=== PATIENT | female | born 1925 | race Caucasian/White ===

== ENCOUNTER 2016-09-04 10:34 | Emergency (ER) | payer OTHER ==
[2016-09-04 10:41] VITALS: BP 142/91; PULSE 85; TEMP 97.5; BMI 23.3
--- NOTE | 2016-09-04 10:49 | PDOC ---
History of Present Illness - General Chief Complaint: Pain, Acute Stated Complaint: LEFT FOOT/ ANKLE PAIN Time Seen by Provider: 09/04/16 10:41 History Source: Patient Exam Limitations: No Limitations - History of Present Illness Initial Comments: 09/04/16 10:44 The patient is an 89-year-old female, immunocompetent, who presents to the emergency department with approximately 12 hours of a rash on her right lateral foot. It began in the region of her ankle, and has now spread toward the mid foot and also up toward the calf. It is mildly tender. She denies fever. She denies swelling. She denies chest pain, back pain, dyspnea. She states that she has neuropathy, and often scratches her ankle while walking past objects. However, she adamantly denies recent trauma. There is no subjective pain when she palpates the area herself. There is no pain on ambulation. There is no pain on range of motion of the ankle and foot. Past History - Past Medical History Allergies/Adverse Reactions: Allergies Allergy/AdvReac Type Severity Reaction Status Date / Time celecoxib [From Celebrex] AdvReac Nausea Verified 09/04/16 10:35 codeine [Codeine] AdvReac Nausea Verified 09/04/16 10:35 hydromorphone HCl AdvReac Nausea Verified 09/04/16 10:35 [From Dilaudid] morphine AdvReac Nausea Verified 09/04/16 10:35 Home Medications: Ambulatory Orders Amlodipine Besylate [Norvasc -] 10 mg PO DAILY 10/03/12 Olmesartan Medoxomil [Benicar -] 20 mg PO DAILY 10/03/12 Metoprolol Succinate [Toprol XL -] 50 mg PO DAILY 02/15/13 Levothyroxine [Synthroid -] 25 mcg PO DAILY 02/06/16 Mirtazapine [Remeron -] 7.5 mg PO HS PRN 02/06/16 Bromfenac Sodium [Prolensa] 1 drop OS DAILY 04/01/16 Pantoprazole Sodium [Protonix] 40 mg PO DAILY 04/01/16 Atorvastatin Ca [Lipitor] 10 mg PO HS 04/13/16 Cephalexin Monohydrate [Keflex] 500 mg PO Q8H #21 capsule 09/04/16 Anemia: No Asthma: No Cancer: No Cardiac Disorders: No CVA: No COPD: No CHF: No Dementia: No Diabetes: No GI Disorders: Yes (GERD, Diverticulitis) Disorders: No HTN: Yes Hypercholesterolemia: Yes Liver Disease: No Seizures: No Thyroid Disease: (Hypothyroidism) - Surgical History Abdominal Surgery: Yes Appendectomy: Yes Cardiac Surgery: No Cholecystectomy: Yes Lung Surgery: No Neurologic Surgery: No Orthopedic Surgery: No - Psycho/Social/Smoking Cessation Hx Anxiety: No Suicidal Ideation: No Smoking Status: No Smoking History: Former smoker Have you smoked in the past 12 months: No Number of Cigarettes Smoked Daily: 10 If you are a former smoker, when did you quit?: 1964 Information on smoking cessation initiated: No Hx Alcohol Use: No Drug/Substance Use Hx: No Substance Use Type: None Hx Substance Use Treatment: No Review of Systems - Review of Systems Comments:: 09/04/16 10:45 CONSTITUTIONAL: Absent: fever, chills, fatigue EYES: Absent: visual changes ENT: Absent: ear pain, sore throat CARDIOVASCULAR: Absent: chest pain, palpitations, loss of consciousness RESPIRATORY: Absent: cough, SOB GI: Absent: abdominal pain, nausea, vomiting, constipation, diarrhea GENITOURINARY: Absent: dysuria, frequency, hematuria MUSKULOSKELETAL: Absent: back pain, arthralgia, myalgia SKIN: Present: see HPI NEURO: Absent: headache, dizziness *Physical Exam - Vital Signs Last Vital Signs Temp Pulse Resp BP Pulse Ox 97.5 F L 85 16 142/91 96 09/04/16 10:35 09/04/16 10:35 09/04/16 10:35 09/04/16 10:35 09/04/16 10:35 - Physical Exam Comments: 09/04/16 10:46 GENERAL: Well-appearing, well-nourished. No apparent distress. HEENT: Normocephalic, atraumatic. PERRL, EOM intact. CARDIOVASCULAR: Normal S1, S2. Regular rate and rhythm. PULMONARY: Clear to auscultation bilaterally. ABDOMEN: Soft, non-distended, non-tender. EXTREMITIES: No gross deformities. There is no bony tenderness of any of the ankle or foot bones. There is full range of motion without pain at the ankle and foot. SKIN: There is a slight erythematous rash in the area of the lateral ankle, that extends approximately 2 cm distal and approximately 2 cm proximal. There are no erythematous streaks extending beyond this area. It is slightly tender to the touch. NEUROLOGICAL: No focal neurological deficits. Medical Decision Making - Medical Decision Making 09/04/16 10:47 The patient is very well-appearing and in no acute distress Her clinical presentation is quite consistent with early/mild cellulitis There is no evidence of sepsis or deep tissue infection It is nonpurulent cellulitis Will treat with Keflex I outlined the area with a highlighter, and she understands that she needs to return to the emergency department if her symptoms do not improve within 24 hours or if they worsen. Clinical impression: Early/mild cellulitis I discussed the physical exam findings, ancillary test results and final diagnoses with the patient. I answered all of the patient's questions. The patient was satisfied with the care received and felt comfortable with the discharge plan and treatment plan. The patient will call their primary care physician within 24 hours to arrange follow-up and will return to the Emergency Department with any new, persistent or worsening symptoms. *DC/Admit/Observation/Transfer Diagnosis at time of Disposition: Cellulitis - Discharge Dispostion Disposition: HOME Condition at time of disposition: Stable - Prescriptions Prescriptions: Cephalexin Monohydrate [Keflex] 500 mg PO Q8H #21 capsule - Referrals Referrals: Germán Willingham MD [Primary Care Provider] - - Patient Instructions Printed Discharge Instructions: DI for Cellulitis -- Adult Additional Instructions: Return to the emergency department immediately with ANY new, persistent or worsening symptoms. You MUST call and follow up with your doctor Tuesday at the latest. Please make sure your doctor reviews the results of your emergency department evaluation.
== END 2016-09-04 11:01 | disposition home or self-care (01) ==
LOC: FER 10:34
DX: L03.90 Cellulitis, unspecified (principal); K21.9 Gastro-esophageal reflux disease without esophagitis; E03.9 Hypothyroidism, unspecified; I10 Essential (primary) hypertension; Z87.891 Personal history of nicotine dependence; E78.00 Pure hypercholesterolemia, unspecified
CPT/HCPCS: 99282-25

== ENCOUNTER 2016-12-31 11:25 | Inpatient (IN) | payer OTHER ==
--- NOTE | 2016-12-31 12:15 | PDOC ---
History of Present Illness - General Chief Complaint: Injury Stated Complaint: LEFT LEG PAIN FALL Time Seen by Provider: 12/31/16 11:43 History Source: Patient, Family Exam Limitations: No Limitations - History of Present Illness Initial Comments: 12/31/16 13:23 89-year-old female with history of hypertension presents with mechanical fall. Patient denies injuries other than her left knee which she landed on. She reports issues and sick about pain and unable to ambulate. Denies numbness or weakness. States that the pain is worse over her left anterior knee and has developed extensive ecchymosis. Given the pain and inability to and ambulate, the patient had came to the hospital. Past History - Past Medical History Allergies/Adverse Reactions: Allergies Allergy/AdvReac Type Severity Reaction Status Date / Time celecoxib [From Celebrex] AdvReac Nausea Verified 12/31/16 11:56 codeine [Codeine] AdvReac Nausea Verified 12/31/16 11:56 hydromorphone HCl AdvReac Nausea Verified 12/31/16 11:56 [From Dilaudid] morphine AdvReac Nausea Verified 12/31/16 11:56 Home Medications: Ambulatory Orders Amlodipine Besylate [Norvasc -] 10 mg PO DAILY 10/03/12 Olmesartan Medoxomil [Benicar -] 20 mg PO DAILY 10/03/12 Metoprolol Succinate [Toprol XL -] 50 mg PO DAILY 02/15/13 Levothyroxine [Synthroid -] 25 mcg PO DAILY 02/06/16 Mirtazapine [Remeron -] 7.5 mg PO HS PRN 02/06/16 Pantoprazole Sodium [Protonix] 40 mg PO DAILY 04/01/16 Atorvastatin Ca [Lipitor] 10 mg PO HS 04/13/16 Anemia: No Asthma: No Cancer: No Cardiac Disorders: No CVA: No COPD: No CHF: No Dementia: No Diabetes: No GI Disorders: Yes (GERD, Diverticulitis) Disorders: No HTN: Yes Hypercholesterolemia: Yes Liver Disease: No Seizures: No Thyroid Disease: (Hypothyroidism) - Surgical History Abdominal Surgery: Yes Appendectomy: Yes Cardiac Surgery: No Cholecystectomy: Yes Lung Surgery: No Neurologic Surgery: No Orthopedic Surgery: No - Psycho/Social/Smoking Cessation Hx Anxiety: No Suicidal Ideation: No Smoking Status: No Smoking History: Former smoker Have you smoked in the past 12 months: No Number of Cigarettes Smoked Daily: 10 If you are a former smoker, when did you quit?: 1965 Hx Alcohol Use: No Drug/Substance Use Hx: No Substance Use Type: None Hx Substance Use Treatment: No Review of Systems - Review of Systems Able to Perform ROS?: Yes Comments:: 12/31/16 13:24 GENERAL/CONSTITUTIONAL: No fever, weakness. HEAD, EYES, EARS, NOSE AND THROAT: No change in vision. No ear pain or discharge. No sore throat. CARDIOVASCULAR: No chest pain or shortness of breath. RESPIRATORY: No cough, wheezing, or hemoptysis. GASTROINTESTINAL: No abdominal pain, nausea, vomiting, diarrhea, or decreased PO intolerance. GENITOURINARY: No dysuria, frequency, or change in urination. MUSCULOSKELETAL: +Left knee pain SKIN: No rash NEUROLOGIC: No headache, vertigo, loss of consciousness, or change in strength/ sensation. ENDOCRINE: No increased thirst. No abnormal weight change. HEMATOLOGIC/LYMPHATIC: No anemia, easy bleeding, or history of blood clots. ALLERGIC/IMMUNOLOGIC: No hives or skin allergy. *Physical Exam - Physical Exam Comments: 12/31/16 13:25 GENERAL: Awake, alert, and fully oriented, in no acute distress. HEAD: No signs of trauma EYES: PERRLA, EOMI, sclera anicteric, conjunctiva clear ENT: Auricles normal inspection, hearing grossly normal, nares patent, oropharynx clear without exudates. NECK: Normal ROM, supple, no lymphadenopathy, JVD, or masses LUNGS: Breath sounds equal, clear to auscultation bilaterally. No wheezes, and no crackles HEART: Regular rate and rhythm, normal S1 and S2, no murmurs, rubs or gallops ABDOMEN: Soft, nontender, normoactive bowel sounds. No guarding, no rebound. No masses EXTREMITIES: LLE: 2+ DP pulse. Sensation intact throughout. ~4x4 cm ecchymosis left anterior knee tender to palpation. Unable to bear weight. Negative anterior and posterior drawer test. Negative varus and valgus. NEUROLOGICAL: Cranial nerves II through XII grossly intact. Normal speech, normal gait SKIN: Warm, Dry, normal turgor, no rashes or lesions noted. Heart Score/ECG Review #1 ECG reviewed & interpreted by me at: 15:00 12/31/16 15:13 NSR 82, Q wave III, avF, no std/juan ramon, normal axis, normal intervals, QTC 429 msec ED Treatment Course - LABORATORY CBC & Chemistry Diagram: 12/31/16 13:39 12/31/16 13:39 - RADIOLOGY Radiology Studies Ordered: Category Date Time Status FEMUR-LEFT [RAD] Stat Radiology 12/31/16 11:51 Ordered KNEE 3 POS-LEFT [RAD] Stat Radiology 12/31/16 11:51 Ordered Medical Decision Making - Medical Decision Making 12/31/16 13:26 Vital Signs Temp Pulse Resp BP Pulse Ox 98.1 F 68 19 157/72 97 12/31/16 11:36 12/31/16 11:36 12/31/16 11:36 12/31/16 11:36 12/31/16 11:36 Left knee xray demonstrates no acute fractures. However, pt unable to ambulate. Likely knee sprain. Will need to admit for observation for PT/OT evaluation. 12/31/16 15:12 CBC, BMP 12/31/16 13:39 12/31/16 13:39 CMP Sodium 140 mmol/L (136-145) 12/31/16 13:39 Potassium 3.5 mmol/L (3.5-5.1) 12/31/16 13:39 Chloride 106 mmol/L (98-107) 12/31/16 13:39 Carbon Dioxide 25 mmol/L (22-28) 12/31/16 13:39 Anion Gap 9 (8-16) 12/31/16 13:39 BUN 15 mg/dl (7-18) 12/31/16 13:39 Creatinine 0.7 mg/dl (0.6-1.3) D 12/31/16 13:39 Creat Clearance w eGFR > 60 (>60) 12/31/16 13:39 Random Glucose 102 mg/dl (74-106) 12/31/16 13:39 Calcium 9.3 mg/dl (8.4-10.2) 12/31/16 13:39 Total Bilirubin 1.2 mg/dl (0.2-1.0) H D 12/31/16 13:39 AST 21 U/L (10-42) 12/31/16 13:39 ALT 16 U/L (10-40) 12/31/16 13:39 Alkaline Phosphatase 71 U/L (32-92) 12/31/16 13:39 Total Protein 7.4 g/dl (6.4-8.3) 12/31/16 13:39 Albumin 4.3 g/dl (3.5-5.0) 12/31/16 13:[address] Arevalo. [address]. Arevalo will see patient as science consultant. Recomends CT. CT ordered. Again, given inability to ambulate, [facility] under med/surg obs Case discussed in detail with admitting physician including history, physical exam and ancillary studies. Admitting physician has assumed care for the patient, will follow all pending diagnostics and will complete the evaluation and treatment. 12/31/16 15:47 CAT scan demonstrates acute left intertrochanteric fracture and acute fracture to the greater trochanter with no dislocation of the femoral head with the acetabular fossa. Will switch to full admission. DR. Sr in ED evaluating patient. *DC/Admit/Observation/Transfer Diagnosis at time of Disposition: Pain of left hip Left knee pain Qualifiers: Chronicity: acute Qualified Code(s): M25.562 - Pain in left knee - Discharge Dispostion Condition at time of disposition: Stable Admit: Yes
[2016-12-31] MEDS ORDERED: KETOROLAC TROMETHAMINE 15 MG/ML VIAL IVPUSH ONE (13:20)
[2016-12-31] MEDS ORDERED: KETOROLAC TROMETHAMINE 30 MG/1 ML VIAL ONE (13:20)
[2016-12-31 13:41] LABS: BASOPHIL 3.4 % (0-2.0); EOSINOPHIL 1.1 % (0-4.5); MCH 29.6 pg (25.7-33.7); MCHC 33.9 g/dl (32.0-36.0); MEAN CELL VOLUME 87.4 fl (80-96); MEAN PLT VOLUME 8.4 fl (7.5-11.1); NEUTROPHILS 69.2 % (42.8-82.8); PLATELET COUNT 202 K/MM3 (134-434); WHITE BLOOD COUNT 9.4 K/mm3 (4.0-10.8)
[2016-12-31 14:00] LABS: ALBUMIN 4.3 g/dl (3.5-5.0); ALK PHOS 71 U/L (32-92); ANION GAP 9 (8-16); BILIRUBIN,TOTAL 1.2 mg/dl (0.2-1.0); CALCIUM 9.3 mg/dl (8.4-10.2); CO2 25 mmol/L (22-28); CREATININE 0.7 mg/dl (0.6-1.3); GLUCOSE,RANDOM 102 mg/dl (74-106); SGOT/AST 21 U/L (10-42); SGPT/ALT 16 U/L (10-40); TOT PROT 7.4 g/dl (6.4-8.3)
[2016-12-31 14:01] LABS: PH,URINE 7.5 (4.5-8); URINE APPEARANCE Clear; URINE BILIRUBIN Negative (NEGATIVE); URINE GLUCOSE (UA) Negative (NEGATIVE); URINE KETONE Trace (NEGATIVE); URINE LEUK ESTERASE Negative (NEGATIVE); URINE NITRITE Negative (NEGATIVE); URINE PROTEIN Negative (NEGATIVE); URINE UROBILINOGEN 0.2 (0.2-1.0)
[2016-12-31] MEDS ORDERED: KETOROLAC TROMETHAMINE 30 MG/1 ML VIAL IVPUSH PRN ×2 (15:07→21:49)
[2016-12-31] MEDS ORDERED: SODIUM CHLORIDE 1,000 ML IV SCH (15:15)
[2016-12-31 15:50] LABS: URINE BLOOD Trace-intact (NEGATIVE); URINE COLOR YELLOW
--- NOTE | 2016-12-31 16:36 | PN ---
Progress Note (short form) - Note Progress Note: Pt seen and examined in the ER. She is an 89 year old female 1 day s/p fall. She pain in the left knee, distal femur, anterior tibia in that order of severity, and vague, less severe, nonspecific pain in the left pelvic area, more laterally. PE LLE is grossly NVI No deformity, no malrotation No pain in the left pelvis and hip area with significant pressure. No pain in the left hip with log rolling. No groin pain. + pain the left knee with axial load, + min pain in the left pelvis. Flexion of the hip possible but decreased, ROM of the knee is possible but limited because of pain. Most of her complaints of pain, and tenderness are over the left knee, very distal femur, and proximal tibia. Xrays AP of the pelvis shows no acute otis pathology Ct Scan of the pelvis shows an acute, comminuted left greater trochanter fracture. The CT report stated there was a nondisplaced left IT fracture. I reviewed the CT scan and was not at all sure that I agreed with that assessment, So I spoke to another radiologist, Dr Guevara, who agrees with me that there is no obvious evidence of an acute Left IT fracture. Imp Clinically she is not presenting like she has an acute IT fracture. She has some lateral left femur fracture pain,over the greater trochanter fracture. Combined with a non specific CTscan I am recommending non operative treatment at this time. Rec P.T., PWB LLE. We will see how it goes over the next 24-48 hours. If she does well we will continue with non operative treatment. If she has increased pain and great difficulty with PWB P.T. then I would recommend an MRI of the left hip.
[2016-12-31 18:24] VITALS: BMI 23.1
[2016-12-31 20:58] LABS: URINE BACTERIA FEW /hpf (NEGATIVE); URINE WBC 0-2 (3-5)
--- NOTE | 2016-12-31 21:42 | HP ---
CHIEF COMPLAINT: knee pain PCP: Maulik HISTORY OF PRESENT ILLNESS: This is an 89 year old female with a past medical history of HTN, HLD, GERD, hypothyroidism who had a mechanical fall yesterday. She was able to get back up and walk to her apartment from the hallway, but had difficulty ambulating today. Pt reports pain to left knee above and below. Denies hip pain. ER course was notable for: (1) L greater trochanteric fx Recent Travel: pt denies PAST MEDICAL HISTORY: HTN HLD GERD hypothyroidism anemia, GI bleed many years ago PAST SURGICAL HISTORY: appendectomy cholecystectomy Social History: Smoking: quit 1960, smoked 1.5 PPW Alcohol: pt denies Drugs: pt denies Family History: mother age 84, [place], CHF, h/o OA father 75, [place], h/o BrCA son alive and well Allergies celecoxib [From Celebrex] Adverse Reaction (Verified 12/31/16 11:56) Nausea codeine [Codeine] Adverse Reaction (Verified 12/31/16 11:56) Nausea hydromorphone HCl [From Dilaudid] Adverse Reaction (Verified 12/31/16 11:56) Nausea morphine Adverse Reaction (Verified 12/31/16 11:56) Nausea HOME MEDICATIONS: 3 Medication Instructions Recorded Amlodipine Besylate [Norvasc -] 10 mg PO DAILY 10/03/12 Olmesartan Medoxomil [Benicar -] 20 mg PO DAILY 10/03/12 Metoprolol Succinate [Toprol XL -] 50 mg PO DAILY 02/15/13 Levothyroxine [Synthroid -] 25 mcg PO DAILY 02/06/16 Mirtazapine [Remeron -] 7.5 mg PO HS PRN 02/06/16 Pantoprazole Sodium [Protonix] 40 mg PO DAILY 04/01/16 Atorvastatin Ca [Lipitor] 10 mg PO HS 04/13/16 REVIEW OF SYSTEMS CONSTITUTIONAL: Absent: fever, chills, diaphoresis, generalized weakness, malaise, loss of appetite, weight change HEENT: Absent: rhinorrhea, nasal congestion, throat pain, throat swelling, difficulty swallowing, mouth swelling, ear pain, eye pain, visual changes CARDIOVASCULAR: Absent: chest pain, syncope, palpitations, irregular heart rate, lightheadedness , peripheral edema RESPIRATORY: Absent: cough, shortness of breath, dyspnea with exertion, orthopnea, wheezing, stridor, hemoptysis GASTROINTESTINAL: Absent: abdominal pain, abdominal distension, nausea, vomiting, diarrhea, constipation, melena, hematochezia GENITOURINARY: Absent: dysuria, frequency, urgency, hesitancy, hematuria, flank pain, genital pain MUSCULOSKELETAL: Present: left knee Absent: myalgia, arthralgia, joint swelling, back pain, neck pain SKIN: Absent: rash, itching, pallor HEMATOLOGIC/IMMUNOLOGIC: Absent: easy bleeding, easy bruising, lymphadenopathy, frequent infections ENDOCRINE: Absent: unexplained weight gain, unexplained weight loss, heat intolerance, cold intolerance NEUROLOGIC: Absent: headache, focal weakness or paresthesias, dizziness, unsteady gait, seizure, mental status changes, bladder or bowel incontinence PSYCHIATRIC: Absent: anxiety, depression, suicidal or homicidal ideation, hallucinations. PHYSICAL EXAMINATION Vital Signs - 24 hr 3 12/31/16 12/31/16 12/31/16 12/31/16 11:36 17:21 18:28 22:30 Temperature 98.1 F 97.6 F 98.1 F Pulse Rate 68 82 78 Respiratory 19 19 18 18 Rate Blood Pressure 157/72 140/73 139/65 O2 Sat by Pulse 97 97 94 L 94 L Oximetry (%) GENERAL: Awake, alert, and fully oriented, in no acute distress. HEAD: Normal with no signs of trauma. EYES: Pupils equal, round and reactive to light, extraocular movements intact, sclera anicteric, conjunctiva clear. No lid lag. EARS, NOSE, THROAT: Ears normal, nares patent, oropharynx clear without exudates. Moist mucous membranes. NECK: Normal range of motion, supple without lymphadenopathy, JVD, or masses. LUNGS: Breath sounds equal, clear to auscultation bilaterally. No wheezes, and no crackles. No accessory muscle use. HEART: Regular rate and rhythm, normal S1 and S2 without murmur, rub or gallop. ABDOMEN: Soft, nontender, not distended, normoactive bowel sounds, no guarding, no rebound, no masses. No hepatomegaly or splenomegaly. MUSCULOSKELETAL: Normal range of motion at all joints. No bony deformities or tenderness. No CVA tenderness. UPPER EXTREMITIES: 2+ pulses, warm, well-perfused. No cyanosis. No clubbing. No peripheral edema. LOWER EXTREMITIES: 2+ pulses, warm, well-perfused. No calf tenderness. No peripheral edema right leg, trace dependent edema L lateral foot, none in ankle. + ecchymosis and soft tissue swelling left knee, + pain on ROM L knee. + pain on ROM L hip, no pain on palpation NEUROLOGICAL: Cranial nerves II-XII intact. Normal speech. Normal gait. PSYCHIATRIC: Cooperative. Good eye contact. Appropriate mood and affect. SKIN: Warm, dry, normal turgor, no rashes or lesions noted, normal capillary refill. Laboratory Results - last 24 hr 3 12/31/16 12/31/16 12/31/16 13:25 13:39 13:39 WBC 9.4 RBC 4.71 Hgb 13.9 Hct 41.2 MCV 87.4 MCH 29.6 MCHC 33.9 RDW 13.0 Plt Count 202 D MPV 8.4 Neutrophils % 69.2 Lymphocytes % 17.4 D Monocytes % 8.9 Eosinophils % 1.1 D Basophils % 3.4 H D Sodium 140 Potassium 3.5 Chloride 106 Carbon Dioxide 25 Anion Gap 9 BUN 15 Creatinine 0.7 D Creat Clearance w eGFR > 60 Random Glucose 102 Calcium 9.3 Total Bilirubin 1.2 H D AST 21 ALT 16 Alkaline Phosphatase 71 Total Protein 7.4 Albumin 4.3 Urine Color Yellow Urine Appearance Clear Urine pH 7.5 D Ur Specific [place] 1.015 Urine Protein Negative Urine Glucose (UA) Negative Urine Ketones Trace Urine Blood Trace-intact H Urine Nitrite Negative Urine Bilirubin Negative Urine Urobilinogen 0.2 Ur Leukocyte Esterase Negative Urine RBC 2-3 Urine WBC 0-2 Urine Bacteria Few Radiology Reports: CT pelvis without contrast CT lower extremity without contrast Comparison studies: April 01, 2016 CT pelvis without contrast CLINICAL HISTORY: Unable to ambulate after trauma and fall for evaluation of left hip, thigh and knee Axial imaging completed with coronal and sagittal reformations, intravenous and oral contrast are not administered. Bone windows reviewed demonstrating no fracture in the region of iliac bone, sacrum or sacroiliac joints Normal region of the anterior and posterior columns of the acetabulum including superior and inferior pubic ramus with no acute fracture or dislocation noted. Acute nondisplaced fracture is seen through the greater trochanter with a small avulsed fragment of bone noted laterally. Cortical disruption is identified in the region with hairline linear nondisplaced fracture noted No fracture through the femoral neck or femoral head with no subluxation from the acetabular fossa No avulsion of the lesser trochanter identified. Mild infiltration of the adjacent subcutaneous fat consistent with edema. Review of the soft tissue windows with no intramuscular hematoma. No bursal or joint effusion identified No gluteal, subcutaneous or iliopsoas hematoma or identified No injury to the aorta or bowel with normal visualization of the urinary bladder, mild diverticulosis sigmoid with no signs of pelvic hematoma or fluid collection in the pelvis Normal visualization of the obturator internus muscle. IMPRESSION: No pelvic or retroperitoneal hematoma or identified No subcutaneous or intramuscular hematoma No bursal or joint effusion Acute nondisplaced fracture through the greater trochanter with a small avulsed fragment of bone laterally. CT lower extremity without contrast Axial imaging completed with coronal and sagittal reformations demonstrating normal visualization of the anterior and posterior columns of the acetabulum including pubic ramus. Normal position of the patella with no disruption of the patellar tendons or bursal effusion. No fracture in the region of tibial plateau or region of fibular neck. No fracture in the region of distal femur. Atherosclerotic vascular calcifications identified Acute intertrochanteric fracture noted on the axial projections with mild degree anterolateral rotation of the femoral head within the acetabular fossa and horizontal orientation of the femoral neck seen, findings seen best on the axial projection. Fracture lines are seen through the intertrochanteric region as well as the greater trochanter. No hematoma is visualized in the surrounding muscle. No evidence of patellar subluxation. 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 Demineralization of the bone is seen with permeative pattern in the intramedullary portion of the bone, there is no overt cortical disruption., These findings can be seen with osteopenia and can also be seen with marrow replacing lesions, correlate clinically if there is a normal peripheral smear and normal protein electrophoresis to be certain there is no evidence of myelomatous infiltration of the marrow. No definite lytic areas are seen in the pelvic bones. IMPRESSION: CT findings consistent with acute left intertrochanteric fracture and acute fracture through the greater trochanter with no dislocation of the femoral head from the acetabular fossa Horizontal orientation of the femoral neck seen with no evidence of intramuscular hematoma or identified Significant demineralization noted in the distal femur possibly on the basis of osteopenia, striated pattern noted within the distal femur marrow with no overt cortical or bone destruction seen. Reported By: Pritesh Gutierrez MD 12/31/16 3785 Left femur 4 views and left knee 3 views Trauma with pain and a fall Images through the left femur and knee demonstrate vascular calcifications with no evidence of acute fracture or dislocation. No fracture in the femoral head and neck. No fracture in the femur with normal position of the patella, no disruption of the patellar tendon with no bursal effusion. Images through the knee completed showing stable appearance of the knee joint with no evidence of acute fracture or dislocation IMPRESSION: No fracture or dislocation in the region of femur No fracture or dislocation in the left knee Reported By: Pritesh Gutierrez MD 12/31/16 1312 ECG: NSR, rate 82, QTC [address]/T wave changes ASSESSMENT/PLAN: 89yF with PMH HTN, HLD, GERD, hypothyroidism presented with left knee pain. She has been admitted for greater trochanter fx. L greater trochanter fracture - ortho consult appreciated - PT with partial weight bearing - pain management will be a challenge given h/o allergy to codeine, dilaudid , morphine, celexa, no adverse reaction to toradol. Will cont same. Tylenol ordered as well. - attempt conservative/nonsurgical management. HTN/HLD - cont home meds. hypothyroidism - cont synthroid, PCP to monitor TSH, 1.44 04/2016 GERD - cont home protonix DVT PPX - lovenox 40mg SC QD FEN - tolerating po - repeat BMP in am - low sodium diet in am Dispo: Pt currently requires inpatient management of her emergent condition. Visit type - Emergency Visit Emergency Visit: Yes ED Registration Date: 12/31/16 Care time: The patient presented to the Emergency Department on the above date and was hospitalized for further evaluation of their emergent condition. - New Patient This patient is new to me today: Yes Date on this admission: 12/31/16 - Critical Care Critical Care patient: No
[2016-12-31] MEDS: ATORVASTATIN CA 10 MG TABLET (FP) PO SCH (22:04)
[2016-12-31] MEDS: ACETAMINOPHEN 325 MG TABLET (FP) PO PRN (22:08)
[2017-01-01] MEDS: LEVOTHYROXINE NA 25 MCG TABLET (FP) PO SCH (06:35)
[2017-01-01 08:07] LABS: BASOPHIL 0.8 % (0-2.0); EOSINOPHIL 1.9 % (0-4.5); MCH 29.7 pg (25.7-33.7); MCHC 33.7 g/dl (32.0-36.0); MEAN CELL VOLUME 88.1 fl (80-96); MEAN PLT VOLUME 7.9 fl (7.5-11.1); NEUTROPHILS 72.5 % (42.8-82.8); PLATELET COUNT 199 K/MM3 (134-434); RDW 13.2 % (11.6-15.6); WHITE BLOOD COUNT 8.6 K/mm3 (4.0-10.8)
--- NOTE | 2017-01-01 08:28 | PN ---
Physical Exam: SUBJECTIVE: Patient seen and examined. Feels well, pain is controlled. OBJECTIVE: Vital Signs Period Temp Pulse Resp BP Sys/Lacey Pulse Ox Last 24 Hr 97.6 F-98.1 F 78-96 18-18 139-167/65-89 94-95 GENERAL: The patient is awake, alert, and fully oriented, in no acute distress. HEAD: Normal with no signs of trauma. EYES: PERRL, extraocular movements intact, sclera anicteric, conjunctiva clear. No ptosis. ENT: Ears normal, nares patent, oropharynx clear without exudates, moist mucous membranes. NECK: Trachea midline, full range of motion, supple. LUNGS: Breath sounds equal, clear to auscultation bilaterally, no wheezes, no crackles, no accessory muscle use. HEART: Regular rate and rhythm, S1, S2 without murmur, rub or gallop. ABDOMEN: Soft, nontender, nondistended, normoactive bowel sounds, no guarding, no rebound, no hepatosplenomegaly, no masses. EXTREMITIES: 2+ pulses, warm, well-perfused, no edema. NEUROLOGICAL: Cranial nerves II through XII grossly intact. Normal speech, steady gait with close contact by PT. PSYCH: Normal mood, normal affect. SKIN: Warm, dry, normal turgor, no rashes or lesions noted. Laboratory Results - last 24 hr 01/01/17 07:55 WBC 8.6 RBC 4.86 Hgb 14.4 Hct 42.9 MCV 88.1 MCH 29.7 MCHC 33.7 RDW 13.2 Plt Count 199 MPV 7.9 Neutrophils % 72.5 Lymphocytes % 16.2 Monocytes % 8.6 Eosinophils % 1.9 Basophils % 0.8 Active Medications Generic Name Dose Route Start Last Admin Trade Name Freq PRN Reason Stop Dose Admin Acetaminophen 650 mg 12/31/16 21:43 12/31/16 22:08 Tylenol - PO 650 mg Q4H PRN Administration FEVER OR PAIN Amlodipine Besylate 10 mg 01/01/17 10:00 Norvasc - PO DAILY [facility] Atorvastatin Calcium 10 mg 12/31/16 22:00 12/31/16 22:04 Lipitor - PO 10 mg HS SHANTELLE Administration Enoxaparin Sodium 40 mg 01/01/17 10:00 Lovenox - SQ DAILY [facility] Ketorolac Tromethamine 15 mg 12/31/16 21:49 Toradol Injection - IVPUSH 01/05/17 15:06 Q6H PRN PAIN Levothyroxine Sodium 25 mcg 01/01/17 07:00 01/01/17 06:35 Synthroid - PO 25 mcg DAILY@0700 SHANTELLE Administration Metoprolol Succinate 50 mg 01/01/17 10:00 Toprol Xl - PO DAILY SHANTELLE Mirtazapine 7.5 mg 12/31/16 15:11 Remeron - PO HS PRN INSOMNIA Pantoprazole Sodium 40 mg 01/01/17 10:00 Protonix - PO DAILY SHANTELLE Valsartan 160 mg 01/01/17 10:00 Diovan - PO DAILY SHANTELLE Imaging: CT pelvis without contrast CT lower extremity without contrast Comparison studies: April 01, 2016 CT pelvis without contrast CLINICAL HISTORY: Unable to ambulate after trauma and fall for evaluation of left hip, thigh and knee Axial imaging completed with coronal and sagittal reformations, intravenous and oral contrast are not administered. Bone windows reviewed demonstrating no fracture in the region of iliac bone, sacrum or sacroiliac joints Normal region of the anterior and posterior columns of the acetabulum including superior and inferior pubic ramus with no acute fracture or dislocation noted. Acute nondisplaced fracture is seen through the greater trochanter with a small avulsed fragment of bone noted laterally. Cortical disruption is identified in the region with hairline linear nondisplaced fracture noted No fracture through the femoral neck or femoral head with no subluxation from the acetabular fossa No avulsion of the lesser trochanter identified. Mild infiltration of the adjacent subcutaneous fat consistent with edema. Review of the soft tissue windows with no intramuscular hematoma. No bursal or joint effusion identified No gluteal, subcutaneous or iliopsoas hematoma or identified No injury to the aorta or bowel with normal visualization of the urinary bladder, mild diverticulosis sigmoid with no signs of pelvic hematoma or fluid collection in the pelvis Normal visualization of the obturator internus muscle. IMPRESSION: No pelvic or retroperitoneal hematoma or identified No subcutaneous or intramuscular hematoma No bursal or joint effusion Acute nondisplaced fracture through the greater trochanter with a small avulsed fragment of bone laterally. CT lower extremity without contrast Axial imaging completed with coronal and sagittal reformations demonstrating normal visualization of the anterior and posterior columns of the acetabulum including pubic ramus. Normal position of the patella with no disruption of the patellar tendons or bursal effusion. No fracture in the region of tibial plateau or region of fibular neck. No fracture in the region of distal femur. Atherosclerotic vascular calcifications identified Acute intertrochanteric fracture noted on the axial projections with mild degree anterolateral rotation of the femoral head within the acetabular fossa and horizontal orientation of the femoral neck seen, findings seen best on the axial projection. Fracture lines are seen through the intertrochanteric region as well as the greater trochanter. No hematoma is visualized in the surrounding muscle. No evidence of patellar subluxation. 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 Demineralization of the bone is seen with permeative pattern in the intramedullary portion of the bone, there is no overt cortical disruption., These findings can be seen with osteopenia and can also be seen with marrow replacing lesions, correlate clinically if there is a normal peripheral smear and normal protein electrophoresis to be certain there is no evidence of myelomatous infiltration of the marrow. No definite lytic areas are seen in the pelvic bones. IMPRESSION: CT findings consistent with acute left intertrochanteric fracture and acute fracture through the greater trochanter with no dislocation of the femoral head from the acetabular fossa Horizontal orientation of the femoral neck seen with no evidence of intramuscular hematoma or identified Significant demineralization noted in the distal femur possibly on the basis of osteopenia, striated pattern noted within the distal femur marrow with no overt cortical or bone destruction seen. Reported By: Pritesh Gutierrez MD 12/31/16 1519 Left femur 4 views and left knee 3 views Trauma with pain and a fall Images through the left femur and knee demonstrate vascular calcifications with no evidence of acute fracture or dislocation. No fracture in the femoral head and neck. No fracture in the femur with normal position of the patella, no disruption of the patellar tendon with no bursal effusion. Images through the knee completed showing stable appearance of the knee joint with no evidence of acute fracture or dislocation IMPRESSION: No fracture or dislocation in the region of femur No fracture or dislocation in the left knee Reported By: Pritesh Gutierrez MD 12/31/16 1312 ECG: NSR, rate 82, QTC [address]/T wave changes ASSESSMENT/PLAN: 89 year old female a history of HTN, HLD, GERD, hypothyroidism presented who presented with left knee pain s/p mechanical fall and was admitted with left greater trochanter fx. 1. Fracture of L greater trochanter with ?IT fracture (noted on CT report, but per ortho scan and exam not clinically consistent with this) -Ortho consult appreciated; PT and trial of non-operative treatment for now -Patient does not have allergy to narcotics, only nausea - tolerating Tramadol well, can dc Toradol -Walked with PT today 2. HTN/HLD -Cont home Valsartan, Metoprolol, Atorvastatin 3. Hypothyroidism -Cont Synthroid 4. GERD -Cont home protonix 5. PPX -Lovenox 40mg SC daily 6. FEN -Sodium-controlled diet Dispo: Inpatient management, for [facility] placement.
[2017-01-01 08:29] LABS: ANION GAP 10 (8-16); CALCIUM 9.2 mg/dl (8.4-10.2); CO2 24 mmol/L (22-28); CREATININE 0.7 mg/dl (0.6-1.3); GLUCOSE,RANDOM 91 mg/dl (74-106); MAGNESIUM 2.1 mg/dL (1.8-2.4); PHOSPHOROUS 2.9 mg/dl (2.5-4.6)
[2017-01-01] MEDS ORDERED: METOPROLOL SUCCINATE 25 MG TAB.SR.24H (FP) PO SCH (10:00)
[2017-01-01] MEDS: ENOXAPARIN NA (PORCINE) 40 MG/0.4 ML DISP.SYRIN SQ SCH (10:35)
[2017-01-01] MEDS: amLODIPine BESYLATE 10 MG TABLET (FP) PO SCH (10:35)
[2017-01-01] MEDS: METOPROLOL SUCCINATE 50 MG TAB.SR.24H (FP) PO SCH (10:35)
[2017-01-01] MEDS: VALSARTAN 160 MG TABLET (UD) PO SCH (10:35)
[2017-01-01] MEDS: PANTOPRAZOLE 40 MG TABLET (FP) PO SCH (10:36)
[2017-01-01] MEDS: traMADol HCL 50 MG TABLET PO PRN ×2 (10:36→21:10)
--- NOTE | 2017-01-01 17:28 | PN ---
Progress Note (short form) - Note Progress Note: Pt seen and examined. She did P.T. today, she did put some weight on the left leg with little to no pain in the hip, no groin pain. PE improved, she is very comfortable. Overall doing very well. Did well with P.T., she continues to present clinically like a fracture of the greater trochanter, as opposed to a hip/IT fracture. Rec: con't P.T., [facility] durbin DC planning, may require SNF placement.
[2017-01-01] MEDS: MIRTAZAPINE 15 MG TABLET (FP) PO PRN (21:11)
[2017-01-01] MEDS: ATORVASTATIN CA 10 MG TABLET (FP) PO SCH (21:11)
[2017-01-02] MEDS: LEVOTHYROXINE NA 25 MCG TABLET (FP) PO SCH (06:43)
[2017-01-02] MEDS: PANTOPRAZOLE 40 MG TABLET (FP) PO SCH (09:13)
[2017-01-02] MEDS: amLODIPine BESYLATE 10 MG TABLET (FP) PO SCH (09:13)
[2017-01-02] MEDS: ENOXAPARIN NA (PORCINE) 40 MG/0.4 ML DISP.SYRIN SQ SCH (09:13)
[2017-01-02] MEDS: VALSARTAN 160 MG TABLET (UD) PO SCH (09:13)
[2017-01-02] MEDS: METOPROLOL SUCCINATE 50 MG TAB.SR.24H (FP) PO SCH (09:13)
[2017-01-02] MEDS: traMADol HCL 50 MG TABLET PO PRN ×2 (09:14→21:16)
--- NOTE | 2017-01-02 09:54 | PN ---
Physical Exam: SUBJECTIVE: Patient seen and examined. Pain is controlled and she was able to ambulate to the bathroom with close assistance. Developed pain and swelling in left axilla overnight. OBJECTIVE: Vital Signs Period Temp Pulse Resp BP Sys/Lacey Pulse Ox Last 24 Hr 97.7 F-98.6 F 67-74 16-18 113-119/50-82 93-93 GENERAL: The patient is awake, alert, and fully oriented, in no acute distress. HEAD: Normal with no signs of trauma. EYES: PERRL, extraocular movements intact, sclera anicteric, conjunctiva clear. No ptosis. ENT: Ears normal, nares patent, oropharynx clear without exudates, moist mucous membranes. NECK: Trachea midline, full range of motion, supple. LUNGS: Breath sounds equal, clear to auscultation bilaterally, no wheezes, no crackles, no accessory muscle use. HEART: Regular rate and rhythm, S1, S2 without murmur, rub or gallop. ABDOMEN: Soft, nontender, nondistended, normoactive bowel sounds, no guarding, no rebound, no hepatosplenomegaly, no masses. EXTREMITIES: 2+ pulses, warm, well-perfused, no edema. Limited ROM of left hip. NEUROLOGICAL: Cranial nerves II through XII grossly intact. Normal speech. Steady gait with close assistance. PSYCH: Normal mood, normal affect. SKIN: Warm, dry, normal turgor. 1 x 1 cm, indurated, tender, raised, erythematous pustule in left axilla. Unable to express any pus with cleansing and gentle pressure. No surrounding cellulitis. No fluctuance. Active Medications Generic Name Dose Route Start Last Admin Trade Name Freq PRN Reason Stop Dose Admin Acetaminophen 650 mg 12/31/16 21:43 12/31/16 22:08 Tylenol - PO 650 mg Q4H PRN Administration FEVER OR PAIN Amlodipine Besylate 10 mg 01/01/17 10:00 01/02/17 09:13 Norvasc - PO 10 mg DAILY SHANTELLE Administration Atorvastatin Calcium 10 mg 12/31/16 22:00 01/01/17 21:11 Lipitor - PO 10 mg HS SHANTELLE Administration Enoxaparin Sodium 40 mg 01/01/17 10:00 01/02/17 09:13 Lovenox - SQ 40 mg DAILY SHANTELLE Administration Levothyroxine Sodium 25 mcg 01/01/17 07:00 01/02/17 06:43 Synthroid - PO 25 mcg DAILY@0700 SHANTELLE Administration Metoprolol Succinate 50 mg 01/01/17 10:00 01/02/17 09:13 Toprol Xl - PO 50 mg DAILY SHANTELLE Administration Mirtazapine 7.5 mg 12/31/16 15:11 01/01/17 21:11 Remeron - PO 7.5 mg HS PRN Administration INSOMNIA Pantoprazole Sodium 40 mg 01/01/17 10:00 01/02/17 09:13 Protonix - PO 40 mg DAILY SHANTELLE Administration Tramadol HCl 50 mg 01/01/17 08:37 01/02/17 09:14 Ultram - PO 50 mg Q6H PRN Administration PAIN Trimethoprim/Sulfamethoxazole 1 each 01/02/17 10:00 Bactrim Ds - PO BID SHANTELLE Valsartan 160 mg 01/01/17 10:00 01/02/17 09:13 Diovan - PO 160 mg DAILY SHANTELLE Administration Imaging: CT pelvis without contrast CT lower extremity without contrast Comparison studies: April 01, 2016 CT pelvis without contrast CLINICAL HISTORY: Unable to ambulate after trauma and fall for evaluation of left hip, thigh and knee Axial imaging completed with coronal and sagittal reformations, intravenous and oral contrast are not administered. Bone windows reviewed demonstrating no fracture in the region of iliac bone, sacrum or sacroiliac joints Normal region of the anterior and posterior columns of the acetabulum including superior and inferior pubic ramus with no acute fracture or dislocation noted. Acute nondisplaced fracture is seen through the greater trochanter with a small avulsed fragment of bone noted laterally. Cortical disruption is identified in the region with hairline linear nondisplaced fracture noted No fracture through the femoral neck or femoral head with no subluxation from the acetabular fossa No avulsion of the lesser trochanter identified. Mild infiltration of the adjacent subcutaneous fat consistent with edema. Review of the soft tissue windows with no intramuscular hematoma. No bursal or joint effusion identified No gluteal, subcutaneous or iliopsoas hematoma or identified No injury to the aorta or bowel with normal visualization of the urinary bladder, mild diverticulosis sigmoid with no signs of pelvic hematoma or fluid collection in the pelvis Normal visualization of the obturator internus muscle. IMPRESSION: No pelvic or retroperitoneal hematoma or identified No subcutaneous or intramuscular hematoma No bursal or joint effusion Acute nondisplaced fracture through the greater trochanter with a small avulsed fragment of bone laterally. CT lower extremity without contrast Axial imaging completed with coronal and sagittal reformations demonstrating normal visualization of the anterior and posterior columns of the acetabulum including pubic ramus. Normal position of the patella with no disruption of the patellar tendons or bursal effusion. No fracture in the region of tibial plateau or region of fibular neck. No fracture in the region of distal femur. Atherosclerotic vascular calcifications identified Acute intertrochanteric fracture noted on the axial projections with mild degree anterolateral rotation of the femoral head within the acetabular fossa and horizontal orientation of the femoral neck seen, findings seen best on the axial projection. Fracture lines are seen through the intertrochanteric region as well as the greater trochanter. No hematoma is visualized in the surrounding muscle. No evidence of patellar subluxation. 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 Demineralization of the bone is seen with permeative pattern in the intramedullary portion of the bone, there is no overt cortical disruption., These findings can be seen with osteopenia and can also be seen with marrow replacing lesions, correlate clinically if there is a normal peripheral smear and normal protein electrophoresis to be certain there is no evidence of myelomatous infiltration of the marrow. No definite lytic areas are seen in the pelvic bones. IMPRESSION: CT findings consistent with acute left intertrochanteric fracture and acute fracture through the greater trochanter with no dislocation of the femoral head from the acetabular fossa Horizontal orientation of the femoral neck seen with no evidence of intramuscular hematoma or identified Significant demineralization noted in the distal femur possibly on the basis of osteopenia, striated pattern noted within the distal femur marrow with no overt cortical or bone destruction seen. Reported By: Pritesh Gutierrez MD 12/31/16 1519 Left femur 4 views and left knee 3 views Trauma with pain and a fall Images through the left femur and knee demonstrate vascular calcifications with no evidence of acute fracture or dislocation. No fracture in the femoral head and neck. No fracture in the femur with normal position of the patella, no disruption of the patellar tendon with no bursal effusion. Images through the knee completed showing stable appearance of the knee joint with no evidence of acute fracture or dislocation IMPRESSION: No fracture or dislocation in the region of femur No fracture or dislocation in the left knee Reported By: Pritesh Gutierrez MD 12/31/16 1312 ECG: NSR, rate 82, QTC [address]/T wave changes ASSESSMENT/PLAN: 89 year old female a history of HTN, HLD, GERD, hypothyroidism presented who presented with left knee pain s/p mechanical fall and was admitted with left greater trochanter fx. 1. Fracture of L greater trochanter with ?IT fracture (noted on CT report, but per ortho scan and exam not clinically consistent with this) -Ortho consult appreciated; PT and trial of non-operative treatment for now -Patient does not have allergy to narcotics, only nausea - tolerating Tramadol well, Toradol dc'd -Walked with PT again today with close contact 2. HTN/HLD -Cont home Valsartan, Metoprolol, Atorvastatin 3. Hypothyroidism -Cont Synthroid 4. GERD -Cont home protonix 5. UTI -Asymptomatic, however with lactose fermenting neg bacilli + staph coagulase neg growing in culture 6. Early left axillary abscess -Per nursing, drained with gentle pressure last night but no culture was sent -Start Bactrim to cover this and UTI Need to monitor K and Cr closely while on Bactrim + Valsartan -Warm pack q4h to affected area 7. PPX -Lovenox 40mg SC daily 8. FEN -Sodium-controlled diet Dispo: Inpatient management; favor [facility] placement as patient lives alone.
[2017-01-02] MEDS: SULFAMETHOXAZOLE/TRIMETHOPRIM 800MG/160MG D.S. TABLET PO SCH ×2 (11:11→21:16)
--- NOTE | 2017-01-02 19:08 | EKG ---
Test Reason : Blood Pressure : / mmHG Vent. Rate : 082 BPM Atrial Rate : 082 BPM P-R Int : 192 ms QRS Dur : 084 ms QT Int : 368 ms P-R-T Axes : 033 -15 042 degrees QTc Int : 429 ms SINUS RHYTHM INFERIOR INFARCT (CITED ON OR BEFORE 01-APR-2016) ABNORMAL ECG WHEN COMPARED WITH ECG OF 01-APR-2016 23:11, NO SIGNIFICANT CHANGE WAS FOUND Confirmed by ABRAHAM RON MD ([id number] on 01/02/2017 7:08:13 PM Referred By: OC Confirmed By:ABRAHAM RON MD
[2017-01-02] MEDS: ATORVASTATIN CA 10 MG TABLET (FP) PO SCH (21:17)
[2017-01-02] MEDS: MIRTAZAPINE 15 MG TABLET (FP) PO PRN (23:10)
[2017-01-02] MEDS ORDERED: KETOROLAC TROMETHAMINE 15 MG/ML VIAL IVPUSH ONE (23:14)
[2017-01-03] MEDS: LEVOTHYROXINE NA 25 MCG TABLET (FP) PO SCH (05:59)
[2017-01-03] MEDS: traMADol HCL 50 MG TABLET PO PRN (05:59)
[2017-01-03 06:13] VITALS: TEMP 98
[2017-01-03 08:53] LABS: ANION GAP 8 (8-16); CALCIUM 8.9 mg/dl (8.4-10.2); CO2 23 mmol/L (22-28); CREATININE 0.9 mg/dl (0.6-1.3); GLUCOSE,RANDOM 115 mg/dl (74-106)
--- NOTE | 2017-01-03 08:58 | PN ---
Progress Note (short form) - Note Progress Note: Ortho Pt seen and examined s/p left greater troch fx decr pain, incr rom, ambulated without much pain nvi a/p PT dvt ppx pain control d/c planning d/w Dr. Sr
[2017-01-03] MEDS: VALSARTAN 160 MG TABLET (UD) PO SCH (09:45)
[2017-01-03] MEDS: amLODIPine BESYLATE 10 MG TABLET (FP) PO SCH (09:45)
[2017-01-03] MEDS: METOPROLOL SUCCINATE 50 MG TAB.SR.24H (FP) PO SCH (09:45)
[2017-01-03] MEDS: PANTOPRAZOLE 40 MG TABLET (FP) PO SCH (09:45)
[2017-01-03] MEDS: SULFAMETHOXAZOLE/TRIMETHOPRIM 800MG/160MG D.S. TABLET PO SCH (09:45)
[2017-01-03] MEDS: ENOXAPARIN NA (PORCINE) 40 MG/0.4 ML DISP.SYRIN SQ SCH (09:46)
[2017-01-03] MEDS ORDERED: POTASSIUM CHLORIDE TABS 20 MEQ TABLET.ER (FP) PO ONE (10:00)
--- NOTE | 2017-01-03 10:57 | DS ---
Physical Exam: SUBJECTIVE: Patient seen and examined OBJECTIVE: Vital Signs Period Temp Pulse Resp BP Sys/Lacey Pulse Ox Last 24 Hr 98.0 F-98.3 F 65-77 16-18 120-143/50-63 91-94 PHYSICAL EXAM GENERAL: The patient is awake, alert, and fully oriented, in no acute distress. HEAD: Normal with no signs of trauma. EYES: PERRL, extraocular movements intact, sclera anicteric, conjunctiva clear. ENT: Ears normal, nares patent, oropharynx clear without exudates, moist mucous membranes. NECK: Trachea midline, full range of motion, supple. LUNGS: Breath sounds equal, clear to auscultation bilaterally, no wheezes, no crackles, no accessory muscle use. HEART: Regular rate and rhythm, S1, S2 without murmur, rub or gallop. ABDOMEN: Soft, nontender, nondistended, normoactive bowel sounds, no guarding, no rebound, no hepatosplenomegaly, no masses. EXTREMITIES: 2+ pulses, warm, well-perfused, no edema. NEUROLOGICAL: Cranial nerves II through XII grossly intact. Normal speech, gait not observed. PSYCH: Normal mood, normal affect. SKIN: Warm, dry, normal turgor, no rashes or lesions noted. LABS Laboratory Results - last 24 hr 01/03/17 07:00 Sodium 136 Potassium 3.2 L Chloride 105 Carbon Dioxide 23 Anion Gap 8 BUN 26 H D Creatinine 0.9 D Random Glucose 115 H D Calcium 8.9 HOSPITAL COURSE: Date of Admission:12/31/16 Date of Discharge: 01/03/17 Minutes to complete discharge: 45 Discharge Summary Reason For Visit: LT HIP FX Current Active Problems Hip pain, left (Acute) Left knee pain (Acute) Condition: Stable - Home Medications Comprehensive Discharge Medication List: Ambulatory Orders Amlodipine Besylate [Norvasc -] 10 mg PO DAILY 10/03/12 Olmesartan Medoxomil [Benicar -] 20 mg PO DAILY 10/03/12 Metoprolol Succinate [Toprol XL -] 50 mg PO DAILY 02/15/13 Levothyroxine [Synthroid -] 25 mcg PO DAILY 02/06/16 Mirtazapine [Remeron -] 7.5 mg PO HS PRN 02/06/16 Pantoprazole Sodium [Protonix] 40 mg PO DAILY 04/01/16 Atorvastatin Ca [Lipitor] 10 mg PO HS 04/13/16
[2017-01-03] MEDS ORDERED: ONDANSETRON *ODT* 4 MG TABLET SL PRN (13:25)
[2017-01-03] MEDS: ACETAMINOPHEN 325 MG TABLET (FP) PO PRN (13:32)
[2017-01-03] MEDS ORDERED: MUPIROCIN 2% TOPICAL OINTMENT 22 GM TUBE TP SCH (14:00)
[2017-01-03 14:49] VITALS: BP 119/60; PULSE 69
[2017-01-03] MEDS ORDERED: PT OWN MED DRAWER 7, Y5N ONE (14:54)
== END 2017-01-03 14:20 | DRG 536 ==
LOC: FER 11:25 → FM/S 17:21
PROVIDERS: ADMIT Internal Medicine; ATTEND Nurse Practitioner Family
DX: S72.115A Nondisplaced fracture of greater trochanter of left femur, initial encounter for closed fracture (principal); N39.0 Urinary tract infection, site not specified; W19.XXXA Unspecified fall, initial encounter; Y93.9 Activity, unspecified; Y92.89 Other specified places as the place of occurrence of the external cause; Y99.9 Unspecified external cause status; I10 Essential (primary) hypertension; E78.5 Hyperlipidemia, unspecified; K21.9 Gastro-esophageal reflux disease without esophagitis; E03.9 Hypothyroidism, unspecified
CPT/HCPCS: 36415; 72192-TC; 73552-TC-LT; 73562-TC-LT; 73700-TC-RT; 80048; 80053; 81003; 81015; 83735; 84100; 85025; 87086; 87186; 93005; 97116-GP; 97161-GP; 99282-25